=== PATIENT | male | born 1940 | race Caucasian/White ===

== ENCOUNTER 2017-07-13 16:20 | Emergency (ER) | payer MEDICARE, MEDICAID ==
[~2017-07-13] VITALS: Ht 182.9 cm; Wt 100.0 kg
[~2017-07-13 16:20] MED LIST: ACET325T14 PO; ACET325T26 PO; ACET650S7 PR; ALBU2.5V NEB; AZIT500T5 PO; BICA50TA PO; CALC200T3 PO; CIPR500T87 PO; DOCU-131 PO; FAMO-79 PO; GABA300C10 PO; GUAI10LI PO; GUAI5SYR PO; HYDR-882 PO; HYDR25TA6 PO; Hydrocodone Bit/Acetaminophen PO; IPRA3AMP NPPB; LIDO700A5 TD; LISI-170 PO; LISI1TAB5 PO; MAG30ORA PO; METO25TA35 PO; MORP15TA3 PO; OMEP-110 PO; ONDA4TAB7 PO; OXYC10TA6 PO; POLY17PO5 PO; POTA10TA5 PO; PRAZ5CAP2 PO; RISP0.5T24 PO; SENN1TAB27 PO; TRAM-47 PO; TRAZ100T15 PO
[2017-07-13 17:48] LABS: ALANINE AMINOTRANSFERASE 20 U/L (12-78); ALBUMIN 3.2 g/dL (3.4-5.0); ANION GAP 6 mmol/L (5-15); CALCIUM 8.4 mg/dL (8.5-10.1); CHLORIDE 106 mmol/L (98-107); CREATININE 0.76 mg/dL (0.7-1.3)
[2017-07-13 17:51] LABS: ALKALINE PHOSPHATASE 60 U/L (45-117); BILIRUBIN,TOTAL 0.8 mg/dL (0.2-1.0); TOTAL PROTEIN 7.1 g/dL (6.4-8.2)
[2017-07-13 17:52] LABS: MICROSCOPIC NOT IND
[2017-07-13 17:56] LABS: CULTURE INDICATED? NO
[2017-07-13 18:10] LABS: BASOPHILS # (AUTO) 0.01 x10^3/uL (0-0.1); BASOPHILS % (AUTO) 0 % (0-1); EOSINOPHILS # (AUTO) 0.03 x10^3/uL (0-0.4); EOSINOPHILS % (AUTO) 0 % (1-7); LYMPHOCYTES # (AUTO) 0.65 x10^3/uL (1-3.4); LYMPHOCYTES % (AUTO) 6 % (22-44); MD SCAN; MEAN CORPUSCULAR HEMOGLOBIN 30.5 pg (27.5-34.5); MEAN CORPUSCULAR HGB CONC 33.4 g/dL (33.2-36.2); MEAN CORPUSCULAR VOLUME 91.5 fL (81-97); MEAN PLATELET VOLUME 9.1 fL (7.4-10.4); MONOCYTES # (AUTO) 0.43 x10^3/uL (0.2-0.8); MONOCYTES % (AUTO) 4 % (2-9); NEUTROPHILS # (AUTO) 9.55 x10^3/uL (1.8-6.8); NEUTROPHILS % (AUTO) 90 % (42-75); PLATELET COUNT 102 x10^3/uL (130-400); RED BLOOD COUNT 4.46 x10^6/uL (4.38-5.82); RED CELL DISTRIBUTION WIDTH 17.4 % (9.4-14.8)
[2017-07-13] MEDS ORDERED: SODIUM CHLORIDE FLUSH 10ML SYR IVF ONE (18:30)
[2017-07-13] MEDS ORDERED: METHYLNALTREXONE 12 MG/0.6 ML SQ ONE ×2 (18:30→19:33)
[2017-07-13] MEDS ORDERED: MAGNESIUM CITRATE 300ML ORAL SOL ONE (20:43)
[2017-07-13 21:39] VITALS: BP 136/82
== END 2017-07-13 22:55 | disposition home or self-care (01) ==
LOC: ED 18:52
DX: K59.00 Constipation, unspecified (principal); J44.9 Chronic obstructive pulmonary disease, unspecified; K21.9 Gastro-esophageal reflux disease without esophagitis; I10 Essential (primary) hypertension; Z85.46 Personal history of malignant neoplasm of prostate; Z87.891 Personal history of nicotine dependence
CPT/HCPCS: 36415; 74176; 76700; 80053; 81003; 83690; 85025; 96372; 99285